=== PATIENT | male | born 1965 | race Two or more races ===

== ENCOUNTER 2020-06-06 08:00 | Outpatient (REF) | payer OTHER, SELFPAY ==
--- NOTE | 2020-06-06 | US_ITS ---
EXAMINATION: US ABDOMEN COMPLETE CLINICAL INFORMATION: Chronic hepatitis C. Liver fibrosis. COMPARISON: CT abdomen and pelvis 07/04/2019. Ultrasound abdomen complete 09/08/2018 and 09/24/2016. TECHNIQUE: Real-time imaging of the abdominal viscera. FINDINGS: PANCREAS: Normal. ABDOMINAL AORTA: The proximal, mid, and distal segments are normal in caliber. INFERIOR VENA CAVA: Visualized portions are normal. LIVER: The liver is normal in size. The liver contour is normal. There is mild increased echogenicity. No focal hepatic lesion. There is no intrahepatic biliary duct dilatation seen. GALLBLADDER: The gallbladder is physiologically distended. Multiple mobile gallstones are present. No evidence of gallbladder wall thickening or pericholecystic fluid. COMMON BILE DUCT: Normal in caliber measuring 0.3 cm in diameter. RIGHT KIDNEY: Normal. No hydronephrosis. No renal calculi or focal parenchymal lesions. The kidney measures 11.3 cm in maximum dimension. LEFT KIDNEY: Normal. No hydronephrosis. No renal calculi or focal parenchymal lesions. The kidney measures 11.7 cm in maximum dimension. SPLEEN: Normal. The spleen measures 8.1 cm in maximum dimension. FREE FLUID: None. US/US abdomen complete IMPRESSION: Cholelithiasis without wall thickening. Small mobile echogenic gallstones without wall thickening. The rest of the abdominal ultrasound is unremarkable.
[2020-06-06 09:02] LABS: MANUAL DIFF FLAG NO
[2020-06-06 09:09] LABS: Basophils Percent Auto 0.5 % (0-2); Eosinophils Absolute Auto 0.1 X10*3/uL (0.0-0.4); Hematocrit 42.3 % (42-52); Imm Gran Abs Auto 0.01 X10*3/uL (0.00-0.03); Imm Gran Pct Auto 0.2 % (0.0-0.4); Lymphocytes Absolute Auto 1.5 X10*3/uL (1.2-4.9); Lymphocytes Percent Auto 24.6 % (20-40); Mean Corpuscular HGB Conc 33.1 g/dl (31.0-36.0); Mean Corpuscular Hemoglobin 30.6 pg (27.0-33.0); Mean Corpuscular Volume 92.6 fL (80-98); Mean Platelet Volume 11.8 fL (9.4-12.4); Monocytes Absolute Auto 0.5 X10*3/uL (0.1-1.2); Monocytes Percent Auto 7.7 % (2-11); Neutrophils Absolute Auto 3.9 X10*3/uL (2.0-8.3); Platelet Count 202 X10*3/uL (160-400); Red Blood Count 4.57 X10*6/uL (4.60-5.80); Red Cell Distribution Width 12.2 % (11.0-16.0)
[2020-06-06 09:16] LABS: Prothrombin Time 11.8 SEC (10.8-13.0)
[2020-06-06 09:31] LABS: Alanine Aminotransferase 25 U/L (0-40); Albumin Level 4.5 g/dL (3.5-5.0); Alkaline Phosphatase 74 U/L (39-117); Aspartate Amino Transferase 26 U/L (5-37); Bilirubin Direct 0.3 mg/dL (0.0-0.5); Bilirubin Total 0.8 mg/dL (0.0-1.0)
[2020-06-07 11:17] LABS: Alpha Fetoprotein 2.3 ng/mL (<6.1)
== END 2020-06-06 08:01 | disposition home or self-care (01) ==
LOC: HO.US 08:00
PROVIDERS: PCP Physician Assistant; Visit Provider Internal Medicine
DX: B18.2 Chronic viral hepatitis C (principal); K74.00 Hepatic fibrosis, unspecified
CPT/HCPCS: 36415; 76700; 80076; 82105; 85025; 85610

== ENCOUNTER 2020-08-04 09:25 | Outpatient (REF) | payer OTHER, SELFPAY | END 2020-08-04 09:26 | disposition home or self-care (01) | LOC: HO.LAB 09:25 | PROVIDERS: Visit Provider Internal Medicine | DX: Z20.828 Contact with and (suspected) exposure to other viral communicable diseases (principal) | CPT/HCPCS: C9803; U0003 ==

== ENCOUNTER 2020-09-08 09:51 | Outpatient (REF) | payer OTHER, SELFPAY ==
[2020-09-08 10:15] LABS: MANUAL DIFF FLAG NO
[2020-09-08 10:24] LABS: Basophils Percent Auto 0.7 % (0-2); Eosinophils Absolute Auto 0.1 X10*3/uL (0.0-0.4); Eosinophils Percent Auto 2.6 % (0-4); Hematocrit 43.8 % (42-52); Hemoglobin 14.7 g/dl (14.0-18.0); Imm Gran Abs Auto 0.01 X10*3/uL (0.00-0.03); Imm Gran Pct Auto 0.2 % (0.0-0.4); Lymphocytes Absolute Auto 1.6 X10*3/uL (1.2-4.9); Lymphocytes Percent Auto 29.6 % (20-40); Mean Corpuscular HGB Conc 33.6 g/dl (31.0-36.0); Mean Corpuscular Hemoglobin 30.9 pg (27.0-33.0); Mean Corpuscular Volume 92.2 fL (80-98); Mean Platelet Volume 11.4 fL (9.4-12.4); Monocytes Absolute Auto 0.4 X10*3/uL (0.1-1.2); Neutrophils Absolute Auto 3.2 X10*3/uL (2.0-8.3); Neutrophils Percent Auto 58.9 % (45-73); Platelet Count 203 X10*3/uL (160-400); Red Blood Count 4.75 X10*6/uL (4.60-5.80); Red Cell Distribution Width 12.3 % (11.0-16.0); White Blood Count 5.5 X10*3/uL (4.8-10.8)
[2020-09-08 10:44] LABS: Alanine Aminotransferase 30 U/L (0-40); Albumin Level 4.5 g/dL (3.5-5.0); Alkaline Phosphatase 72 U/L (39-117); Anion Gap 16 (12-20); Aspartate Amino Transferase 30 U/L (5-37); Bilirubin Total 0.5 mg/dL (0.0-1.0); Blood Urea Nitrogen 18 mg/dL (9-16); Calcium 9.1 mg/dL (8.4-10.2); Carbon Dioxide 26 mmol/L (22-29); Chloride 102 mmol/L (96-108); Cholesterol 181 mg/dL; Estimated Glomerular Filt Rate > 60; Glucose Fasting 98 mg/dL (60-99); HDL Cholesterol 62 mg/dL; LDL Cholesterol Calculated 109 mg/dl; Potassium 4.8 mmol/L (3.3-5.1); Sodium 139 mmol/L (135-145); Total Protein 7.3 g/dL (6.5-8.0); Triglycerides 52 mg/dL
[2020-09-08 11:03] LABS: Prostate Specific Antigen 0.46 ng/mL (<0.05-4.0)
== END 2020-09-08 09:52 | disposition home or self-care (01) ==
LOC: HO.LAB 09:51
PROVIDERS: PCP Physician Assistant; Visit Provider Physician Assistant
DX: E78.00 Pure hypercholesterolemia, unspecified (principal); I10 Essential (primary) hypertension; Z12.5 Encounter for screening for malignant neoplasm of prostate
CPT/HCPCS: 36415; 80053; 80061; 84153; 85025

== ENCOUNTER 2021-03-16 08:23 | Outpatient (REF) | payer OTHER, SELFPAY ==
[2021-03-16 09:00] LABS: Hematocrit 41.1 % (42-52); Hemoglobin 13.5 g/dl (14.0-18.0); Mean Corpuscular HGB Conc 32.8 g/dl (31.0-36.0); Mean Corpuscular Hemoglobin 30.5 pg (27.0-33.0); Mean Platelet Volume 11.5 fL (9.4-12.4); Platelet Count 189 X10*3/uL (160-400); Red Blood Count 4.42 X10*6/uL (4.60-5.80); Red Cell Distribution Width 12.9 % (11.0-16.0); White Blood Count 5.6 X10*3/uL (4.8-10.8)
[2021-03-16 09:43] LABS: Alanine Aminotransferase 25 U/L (0-40); Albumin Level 4.3 g/dL (3.5-5.0); Alkaline Phosphatase 63 U/L (39-117); Anion Gap 14 (12-20); Aspartate Amino Transferase 23 U/L (5-37); Bilirubin Total 0.7 mg/dL (0.0-1.0); Blood Urea Nitrogen 21 mg/dL (9-16); Carbon Dioxide 27 mmol/L (22-29); Chloride 106 mmol/L (96-108); Cholesterol 201 mg/dL; Estimated Glomerular Filt Rate > 60; Glucose Fasting 108 mg/dL (60-99); HDL Cholesterol 62 mg/dL; LDL Cholesterol Calculated 127 mg/dl; Potassium 4.7 mmol/L (3.3-5.1); Sodium 142 mmol/L (135-145); Total Protein 6.9 g/dL (6.5-8.0); Triglycerides 62 mg/dL
[2021-03-16 09:50] LABS: TSH reflex Free T4 2.12 uIU/mL (0.32-4.0)
== END 2021-03-16 08:24 | disposition home or self-care (01) ==
LOC: HO.LAB 08:23
PROVIDERS: PCP Physician Assistant; Visit Provider Physician Assistant
DX: E78.5 Hyperlipidemia, unspecified (principal); I10 Essential (primary) hypertension
CPT/HCPCS: 36415; 80053; 80061; 84443; 85027

== ENCOUNTER 2021-09-21 07:52 | Outpatient (REF) | payer OTHER, SELFPAY ==
[2021-09-21 08:40] LABS: Hematocrit 41.5 % (42.0-52.0); Hemoglobin 13.9 g/dl (14.0-18.0); Mean Corpuscular HGB Conc 33.5 g/dl (31.0-36.0); Mean Corpuscular Volume 92.6 fL (80.0-98.0); Mean Platelet Volume 10.9 fL (9.4-12.4); Platelet Count 219 X10*3/uL (160-400); Red Blood Count 4.48 X10*6/uL (4.60-5.80); Red Cell Distribution Width 12.7 % (11.0-16.0); White Blood Count 8.6 X10*3/uL (4.8-10.8)
[2021-09-21 08:59] LABS: Alanine Aminotransferase 25 U/L (0-40); Albumin Level 4.4 g/dL (3.5-5.0); Alkaline Phosphatase 64 U/L (39-117); Anion Gap 12 (12-20); Aspartate Amino Transferase 27 U/L (5-37); Bilirubin Total 0.8 mg/dL (0.0-1.0); Blood Urea Nitrogen 21 mg/dL (9-16); Calcium 9.3 mg/dL (8.4-10.2); Carbon Dioxide 29 mmol/L (22-29); Chloride 103 mmol/L (96-108); Cholesterol 230 mg/dL; Estimated Glomerular Filt Rate > 60; Glucose Fasting 118 mg/dL (60-99); HDL Cholesterol 67 mg/dL; LDL Cholesterol Calculated 150 mg/dl; Potassium 4.4 mmol/L (3.3-5.1); Sodium 140 mmol/L (135-145); Total Protein 7.2 g/dL (6.5-8.0); Triglycerides 66 mg/dL
[2021-09-21 09:19] LABS: Prostate Specific Antigen Scr 0.45 ng/mL (<0.05-4.0); TSH reflex Free T4 2.77 uIU/mL (0.32-4.0)
[2021-09-21 10:35] LABS: Appearance Urine HAZY; Color Urine YELLOW; Glucose Urine UA NEG (NEG); Leukocyte Esterase Urine NEG (NEG); Nitrite Urine NEG (NEG); UACC Culture Trigger NO; Urine Blood TRACE (NEG); Urine Ketones NEG (NEG); Urine Protein NEG (NEG-TRACE)
[2021-09-21 11:38] LABS: Squamous Epithelial Cell Urine TRACE /LPF; WBC Urine 0 /HPF (0-4)
[2021-09-21 11:39] LABS: Amorphous Sediment Urine 2+ /LPF
== END 2021-09-21 07:53 | disposition home or self-care (01) ==
LOC: HO.LAB 07:52
PROVIDERS: PCP Physician Assistant; Visit Provider Physician Assistant
DX: I10 Essential (primary) hypertension (principal); R30.0 Dysuria; R31.29 Other microscopic hematuria; E78.2 Mixed hyperlipidemia; Z12.5 Encounter for screening for malignant neoplasm of prostate
CPT/HCPCS: 36415; 80053; 80061; 81001; 81003; 84153; 84443; 85027

== ENCOUNTER 2021-10-09 08:43 | Outpatient (REF) | payer OTHER, SELFPAY ==
--- NOTE | ~2021-10-09 | US_ITS ---
EXAMINATION: US COMPLETE ABDOMEN WITH LIVER ELASTOGRAPHY CLINICAL INFORMATION: Liver fibrosis. History of hepatitis C COMPARISON: None. TECHNIQUE: Real-time imaging of the abdominal viscera. Noninvasive ultrasound liver fibrosis assessment is performed using Massiel ElastPQ point quantification shear wave elastography (2D-SWE) with a C5-2 MHz transducer. Multiple elastography samples are obtained. FINDINGS: PANCREAS: Normal. The visualized pancreatic head and body are normal in appearance. The remainder of the pancreas is obscured from visualization by the overlying bowel gas. ABDOMINAL AORTA: The proximal, middle, and distal aortic segments are normal in caliber. There is evidence of mild atherosclerotic disease. INFERIOR VENA CAVA: Visualized portions are normal. LIVER: Normal. The liver demonstrates normal size, contour and echogenicity. No focal lesion or intrahepatic biliary duct dilatation. The right lobe measures 11 cm in length. The left lobe measures 9 cm in length. Portal flow is normal/hepatopedal Shear wave liver elastography median stiffness is 1.3 m/s (reference: normal median stiffness is 1.3 m/s or less). IQR/median stiffness to assess sampling precision is 0.12 (reference: good quality data set is IQR/median stiffness of 0.15 or less). GALLBLADDER: Normal. The gallbladder is physiologically distended without evidence of stones, sludge, polyps, wall thickening or pericholecystic fluid. COMMON BILE DUCT: Normal in caliber measuring 0.2 cm in diameter. RIGHT KIDNEY: Normal. No hydronephrosis. No renal calculi or focal parenchymal lesions. The kidney measures 11 cm in maximum dimension. LEFT KIDNEY: Normal. No hydronephrosis. No renal calculi or focal parenchymal lesions. The kidney measures 12 cm in maximum dimension. SPLEEN: Normal. The spleen measures 8 cm in maximum dimension. FREE FLUID: None. US/US abdomen comp w elastography IMPRESSION: 1. Impression: Mild atherosclerotic disease otherwise unremarkable exam. 2. Liver elastography: Adequate liver sampling. High probability of being normal. REFERENCE: Society of Radiologists in Ultrasound Liver Stiffness Thresholds (2020): LIVER STIFFNESS THRESHOLDS: *Liver Stiffness equal or less than 1.3 m/s: High probability of being normal. *Liver Stiffness less than 1.7 m/s: In the absence of other known clinical signs, rules out compensated advanced chronic liver disease. *Liver Stiffness 1.7-2.1 m/s: Suggestive of compensated advanced chronic liver disease but need further test for confirmation. *Liver Stiffness over 2.1 m/s: Rules in compensated advanced chronic liver disease. *Liver Stiffness over 2.4 m/s: Suggestive of clinically significant portal hypertension. QUALITY OF DATA SET: *IQR/Median value equal or less than 0.15 implies a quality data set. *IQR/Median value over 0.15 implies a poor quality data set. SIGNIFICANT CHANGE FROM PRIOR EXAM: Significant change if liver stiffness measurement is 10% or greater from prior exam. OTHER CONSIDERATIONS: The stage of liver fibrosis may be overestimated in the setting of acute hepatitis, liver inflammation, elevated liver function tests, hepatic vascular congestion, obstructive cholestasis, non-fasting state, and infiltrative diseases such as amyloidosis and lymphoma. In some patients with NAFLD, the liver stiffness thresholds for compensated advanced chronic liver disease may be lower. In causes other than viral hepatitis and NAFLD, liver stiffness thresholds are not well established.
[2021-10-09 10:17] LABS: INTERNATIONAL NORM RATIO 0.9 (0.9-1.1); Prothrombin Time 10.7 SEC (9.9-13.0)
[2021-10-11 12:21] LABS: Alpha Fetoprotein 2.5 ng/mL (<6.1)
== END 2021-10-09 08:44 | disposition home or self-care (01) ==
LOC: HO.US 08:43
PROVIDERS: PCP Physician Assistant; Visit Provider Internal Medicine
DX: K74.00 Hepatic fibrosis, unspecified (principal); Z86.19 Personal history of other infectious and parasitic diseases
CPT/HCPCS: 36415; 76705; 76981; 82105; 85610

== ENCOUNTER 2022-04-08 07:05 | Outpatient (REF) | payer OTHER, SELFPAY ==
[2022-04-08 07:22] LABS: MANUAL DIFF FLAG NO
[2022-04-08 07:56] LABS: Basophils Percent Auto 0.6 % (0-2); Eosinophils Absolute Auto 0.1 X10*3/uL (0.0-0.4); Eosinophils Percent Auto 2.2 % (0-4); Hemoglobin 13.3 g/dl (14.0-18.0); Imm Gran Abs Auto 0.01 X10*3/uL (0.00-0.03); Imm Gran Pct Auto 0.2 % (0.0-0.4); Lymphocytes Absolute Auto 1.4 X10*3/uL (1.2-4.9); Lymphocytes Percent Auto 21.4 % (20-40); Mean Corpuscular HGB Conc 34.1 g/dl (31.0-36.0); Mean Corpuscular Volume 90.9 fL (80.0-98.0); Mean Platelet Volume 11.2 fL (9.4-12.4); Monocytes Absolute Auto 0.4 X10*3/uL (0.1-1.2); Monocytes Percent Auto 5.8 % (2-11); Neutrophils Absolute Auto 4.4 x10*3/uL (2.0-8.3); Neutrophils Percent Auto 69.8 % (45-73); Platelet Count 209 X10*3/uL (160-400); Red Blood Count 4.29 X10*6/uL (4.60-5.80); Red Cell Distribution Width 12.7 % (11.0-16.0); White Blood Count 6.4 X10*3/uL (4.8-10.8)
[2022-04-08 08:08] LABS: Appearance Urine Clear; Color Urine Yellow; Glucose Urine UA Negative (Negative); Leukocyte Esterase Urine Negative (Negative); Nitrite Urine Negative (Negative); PH 5.5 (5.0-9.0); Urine Blood Small (1+) (Negative); Urine Ketones Negative (Negative); Urine Protein Negative (Neg-Trace)
[2022-04-08 08:20] LABS: Bacteria Urine None Seen (None Seen); Hyaline Casts Urine 0-2 /LPF (0-2); RBC Urine 0-2 /HPF (0-2); Squamous Epithelial Cell Urine 0-2 /HPF (0-2); WBC Urine 0-5 /HPF (0-5)
[2022-04-08 08:46] LABS: Alanine Aminotransferase 16 U/L (0-40); Albumin Level 4.2 g/dL (3.5-5.0); Alkaline Phosphatase 58 U/L (39-117); Anion Gap 14 (12-20); Aspartate Amino Transferase 17 U/L (5-37); Bilirubin Total 0.5 mg/dL (0.0-1.0); Blood Urea Nitrogen 16 mg/dL (9-16); Calcium 8.5 mg/dL (8.4-10.2); Carbon Dioxide 25 mmol/L (22-29); Chloride 105 mmol/L (96-108); Cholesterol 182 mg/dL; Estimated Glomerular Filt Rate > 60; Glucose Fasting 107 mg/dL (60-99); HDL Cholesterol 59 mg/dL; Iron 87 mcg/dL (45-160); LDL Cholesterol Calculated 109 mg/dl; Percent Iron Saturation 27 % (15-50); Potassium 3.8 mmol/L (3.3-5.1); Sodium 140 mmol/L (135-145); Total Iron Binding Capacity 325 mcg/dL (228-428); Total Protein 6.7 g/dL (6.5-8.0); Triglycerides 74 mg/dL; Unsaturated Iron Binding 238 ug/dL
[2022-04-08 09:29] LABS: Estimated Average Glucose 111 mg/dL; Hemoglobin A1c % 5.5 %
[2022-04-08 09:40] LABS: Microalbum/Creatinine Ratio Ur 5.1 ug/mg cr
== END 2022-04-08 07:06 | disposition home or self-care (01) ==
LOC: HO.LAB 07:05
PROVIDERS: PCP Physician Assistant; Visit Provider Physician Assistant
DX: I10 Essential (primary) hypertension (principal); D50.9 Iron deficiency anemia, unspecified; E78.5 Hyperlipidemia, unspecified; E78.2 Mixed hyperlipidemia; R73.01 Impaired fasting glucose; R30.0 Dysuria; R31.29 Other microscopic hematuria
CPT/HCPCS: 36415; 80053; 80061; 81001; 81003; 82043; 83036; 83540; 84443; 85025; 85027

== ENCOUNTER 2022-08-06 14:29 | Outpatient (REF) | payer OTHER, SELFPAY ==
--- NOTE | 2022-08-06 08:45 | EMG_ITS ---
Please see scanned EMG / Nerve Conduction Report. MTDD
== END 2022-08-06 14:30 | disposition home or self-care (01) ==
LOC: HO.NEURO 14:29
PROVIDERS: PCP Physician Assistant; Visit Provider Physician Assistant
DX: R20.2 Paresthesia of skin (principal)
CPT/HCPCS: 95885; 95910

== ENCOUNTER 2022-12-05 10:12 | Outpatient (REF) | payer OTHER, MEDICAID, SELFPAY ==
--- NOTE | ~2022-12-05 | XR_ITS ---
EXAMINATION: XR HAND, LEFT CLINICAL INFORMATION: Left hand pain. COMPARISON: None available. TECHNIQUE: PA, lateral, and oblique views of the left hand. FINDINGS: No acute fracture or dislocation of the left hand is identified. No destructive bony lesions are evident. There appears be a bone island within the head of the 5th metacarpal and base of the 4th middle phalanx. There is mild degenerative change about the 1st carpometacarpal joint. There is question old healed fracture of the scaphoid. Joint spaces appear maintained. XR/XR hand LT min 3V IMPRESSION: No significant left hand abnormality appreciated.
== END 2022-12-05 10:13 | disposition home or self-care (01) ==
LOC: HO.HOSX 10:12
PROVIDERS: Visit Provider Orthopaedic Surgery
DX: G56.02 Carpal tunnel syndrome, left upper limb (principal)
CPT/HCPCS: 73130; 99202

== ENCOUNTER 2022-12-25 09:53 | Day surgery (SDC) | payer OTHER, SELFPAY ==
[2022-12-25 10:22] VITALS: BMI 21.4
--- NOTE | 2022-12-25 12:10 | MHC.SHP ---
Pre-Procedural Eval Section A Date of Service: 12/25/22 The patient is an INPATIENT: No Changes since office visit: No Cold of Flu in the past 2 weeks, No New Medical Problems, No Changes in Medication and No Patient answered all questions The History & Physical has been completed within 30 days and I have reviewed it.: Yes Section B Chief Complaint: Carpal tunnel syndrome, left upper limb Allergies: Allergies Allergy/AdvReac Type Severity Reaction Status Date / Time No Known Allergies Allergy Verified 12/05/22 15:30 [No Known Allergies*] Plan I have reviewed the history and physical and performed a pertinent physical examination on my patient. No changes have occurred unless specified. Time Spent With Patient Time: Total time managing care of this patient today ____ minutes.
--- NOTE | 2022-12-25 12:11 | W.PM.OPN ---
Operative Note Operative Note Date of Service: 12/25/22 Narrative: Preop diagnosis: 1. Left Carpal tunnel syndrome Postop diagnosis: same Procedure: 1. Left Carpal tunnel release Surgeon: Ariela Allan MD Anesthesia: local block using 1% lidocaine with epinephrine Findings: Thickened transverse carpal ligament. EBL: Less than 5 mL Specimens: None Complications: None Disposition: Brought to recovery room in stable condition Plan: Follow-up for 10-14 days for wound check and suture removal Indications: The patient is 57 years old, with left carpal tunnel syndrome that has been unresponsive to nonoperative management. The risks and benefits of operative treatment including but not limited to risk of damage to blood vessels, nerves, tendons, infection, persistent pain, persistent symptoms, or possible need for additional surgery were discussed with the patient and the patient wishes to proceed with surgery. Procedure: Once consent was obtained a local block was performed using a combination of 1% lidocaine with epinephrine. The patient was then brought back to the operating suite and placed on the operative table in supine position. The left upper extremity was prepped and draped in a standard surgical fashion. Once assured that we had a good block, a 2.0 cm longitudinal incision was made centered over the carpal tunnel. The incision was made through the skin to the subcutaneous tissues using a #15 blade. Dissection was made down to the level of the transverse carpal ligament with care being taken to protect the palmar cutaneous nerve. Once the transverse carpal ligament was clearly visualized, a longitudinal incision was made in the transverse carpal ligament 1st using a #15 blade, then using tenotomy scissors under direct visualization. Care was taken to look for and protect the motor branch of the median nerve when seen in this area. Once satisfied with our carpal tunnel release the wound was copiously irrigated with normal saline and hemostasis was obtained with a brief period of local pressure. The skin edges were reapproximated with some 5.0 nylon suture material and a sterile dressing was applied. The patient appears to have tolerated the procedure well and with no complications. All digits were well vascularized at the conclusion of the case.
[2022-12-25 13:02] VITALS: BP 141/76; PULSE 71; RESP 18; O2SAT 98
== END 2022-12-25 14:55 | disposition home or self-care (01) ==
PROVIDERS: PCP Physician Assistant; Visit Provider Orthopaedic Surgery
PROC: (CPT 64721; principal; 2022-12-25 12:20)
DX: G56.02 Carpal tunnel syndrome, left upper limb (principal); R20.0 Anesthesia of skin; R20.2 Paresthesia of skin; Z96.611 Presence of right artificial shoulder joint; F12.90 Cannabis use, unspecified, uncomplicated
CPT/HCPCS: 64721; J0171

== ENCOUNTER 2022-12-30 07:21 | Outpatient (REF) | payer OTHER, SELFPAY ==
[2022-12-30 08:00] LABS: Hematocrit 41.7 % (42.0-52.0); Hemoglobin 13.7 g/dl (14.0-18.0); Mean Corpuscular HGB Conc 32.9 g/dl (31.0-36.0); Mean Corpuscular Hemoglobin 30.7 pg (27.0-33.0); Mean Corpuscular Volume 93.5 fL (80.0-98.0); Mean Platelet Volume 10.8 fL (9.4-12.4); Platelet Count 202 X10*3/uL (160-400); Red Blood Count 4.46 X10*6/uL (4.60-5.80); Red Cell Distribution Width 12.8 % (11.0-16.0); White Blood Count 6.1 X10*3/uL (4.8-10.8)
[2022-12-30 08:52] LABS: Alanine Aminotransferase 13 U/L (0-40); Albumin Level 4.2 g/dL (3.5-5.0); Alkaline Phosphatase 70 U/L (39-117); Anion Gap 11 (12-20); Aspartate Amino Transferase 13 U/L (5-37); Bilirubin Total 0.3 mg/dL (0.0-1.0); Blood Urea Nitrogen 14 mg/dL (9-16); Calcium 9.1 mg/dL (8.4-10.2); Carbon Dioxide 29 mmol/L (22-29); Chloride 106 mmol/L (96-108); Cholesterol 210 mg/dL; Estimated Glomerular Filt Rate > 60; Glucose Fasting 109 mg/dL (60-99); HDL Cholesterol 58 mg/dL; LDL Cholesterol Calculated 135 mg/dl; Potassium 4.2 mmol/L (3.3-5.1); Sodium 142 mmol/L (135-145); Total Protein 6.6 g/dL (6.5-8.0); Triglycerides 88 mg/dL
[2022-12-30 08:54] LABS: Prostate Specific Antigen Scr 1.13 ng/mL (<0.05-4.0)
[2022-12-30 09:38] LABS: Creatinine Urine 155.74 mg/dL; Microalbum/Creatinine Ratio Ur 4.4 ug/mg cr
== END 2022-12-30 07:22 | disposition home or self-care (01) ==
LOC: HO.LAB 07:21
PROVIDERS: PCP Physician Assistant; Visit Provider Physician Assistant
DX: Z12.5 Encounter for screening for malignant neoplasm of prostate (principal); I10 Essential (primary) hypertension; E78.2 Mixed hyperlipidemia
CPT/HCPCS: 36415; 80053; 80061; 82043; 84153; 85027

== ENCOUNTER → 2023-01-07 13:55 | Outpatient (BNVA) | payer OTHER, SELFPAY | PROVIDERS: PCP Physician Assistant; Visit Provider Orthopaedic Surgery | DX: Z48.811 Encounter for surgical aftercare following surgery on the nervous system (principal); Z86.69 Personal history of other diseases of the nervous system and sense organs | CPT/HCPCS: 99212 ==

== ENCOUNTER 2023-04-27 09:50 | Outpatient (REF) | payer OTHER, SELFPAY ==
--- NOTE | ~2023-04-27 | US_ITS ---
EXAMINATION: US COMPLETE ABDOMEN WITH LIVER ELASTOGRAPHY CLINICAL INFORMATION: Hepatic fibrosis. History of hepatitis C. COMPARISON: October 09, 2021. TECHNIQUE: Real-time imaging of the abdominal viscera. Noninvasive ultrasound liver fibrosis assessment is performed using Massiel ElastPQ point quantification shear wave elastography (2D-SWE) with a C5-2 MHz transducer. Multiple elastography samples are obtained. FINDINGS: PANCREAS: Head and body appear unremarkable. Tail not visualized. ABDOMINAL AORTA: The proximal, middle, and distal aortic segments appear unremarkable in caliber. INFERIOR VENA CAVA: Visualized portions appear normal. LIVER: The liver demonstrates normal size, contour and echogenicity. No focal lesion or intrahepatic biliary duct dilatation appreciated. The right lobe measures 12.5 cm in length. The left lobe measures 8.3 cm in length. Portal flow is towards the liver (hepatopetal). Shear wave liver elastography median stiffness is 1.38 m/s (reference: normal median stiffness is 1.3 m/s or less). IQR/median stiffness to assess sampling precision is 0.08 (reference: good quality data set is IQR/median stiffness of 0.15 or less). GALLBLADDER: No shadowing stone, gallbladder wall thickening, hyperemia, or pericholecystic fluid identified. Question gallbladder fold versus 0.2 cm polyp. Technologist reports negative sonographic Jackson's sign. COMMON BILE DUCT: Normal in caliber measuring 0.3 cm in diameter. RIGHT KIDNEY: No hydronephrosis. No renal calculi or focal parenchymal lesion appreciated. The kidney measures 10.4 cm in maximum dimension. LEFT KIDNEY: No hydronephrosis. No renal calculi or focal parenchymal lesion appreciated. The kidney measures 11.5 cm in maximum dimension. SPLEEN: The spleen measures 9.2 cm in maximum dimension. FREE FLUID: None. US/US abdomen comp w elastography IMPRESSION: Liver elastography: Minimal risk of clinically significant fibrosis. Question gallbladder fold versus 0.2 cm polyp. Otherwise unremarkable abdominal ultrasound examination. REFERENCE: Society of Radiologists in Ultrasound Liver Stiffness Thresholds (2020): LIVER STIFFNESS THRESHOLDS: *Liver Stiffness equal or less than 1.3 m/s: High probability of being normal. *Liver Stiffness less than 1.7 m/s: In the absence of other known clinical signs, rules out compensated advanced chronic liver disease. *Liver Stiffness 1.7-2.1 m/s: Suggestive of compensated advanced chronic liver disease but need further test for confirmation. *Liver Stiffness over 2.1 m/s: Rules in compensated advanced chronic liver disease. *Liver Stiffness over 2.4 m/s: Suggestive of clinically significant portal hypertension. QUALITY OF DATA SET: *IQR/Median value equal or less than 0.15 implies a quality data set. *IQR/Median value over 0.15 implies a poor quality data set. SIGNIFICANT CHANGE FROM PRIOR EXAM: Significant change if liver stiffness measurement is 10% or greater from prior exam. OTHER CONSIDERATIONS: The stage of liver fibrosis may be overestimated in the setting of acute hepatitis, liver inflammation, elevated liver function tests, hepatic vascular congestion, obstructive cholestasis, non-fasting state, and infiltrative diseases such as amyloidosis and lymphoma. In some patients with NAFLD, the liver stiffness thresholds for compensated advanced chronic liver disease may be lower. In causes other than viral hepatitis and NAFLD, liver stiffness thresholds are not well established.
[2023-04-27 11:08] LABS: INTERNATIONAL NORM RATIO 0.9 (0.9-1.1); Prothrombin Time 11.3 SEC (11.1-13.3)
[2023-04-29 12:53] LABS: Alpha Fetoprotein 2.1 ng/mL (<6.1)
[2023-04-29 14:54] LABS: HCV Log PCR <1.18 NOT DETECTED Log IU/mL (NOT DETECTED); HepC Viral Load <15 NOT DETECTED IU/mL (NOT DETECTED)
[2023-05-01 19:30] LABS: FIB-ALT 11 U/L (9-46); FIB-Alpha-2-Macroglobulin 200 mg/dL (106-279); FIB-Apolipoprotein A1 185 mg/dL (94-176); FIB-GGT 17 U/L (3-85); FIB-Haptoglobin 183 mg/dL (43-212); FIB-Total Bilirubin 0.4 mg/dL (0.2-1.2); Liver Fibrosis Score 0.11; Liver Fibrosis Stage F0; Nec Inflam Act Grade A0; Nec Inflam Act Score 0.02
== END 2023-04-27 09:51 | disposition home or self-care (01) ==
LOC: HO.US 09:50
PROVIDERS: PCP Physician Assistant; Visit Provider Internal Medicine
DX: K74.00 Hepatic fibrosis, unspecified (principal); Z86.19 Personal history of other infectious and parasitic diseases
CPT/HCPCS: 36415; 76705; 76981; 81596; 82105; 85610; 87522

== ENCOUNTER 2023-07-04 07:50 | Outpatient (REF) | payer OTHER, SELFPAY ==
--- NOTE | ~2023-07-04 | XR_ITS ---
EXAMINATION: XR CHEST 2 VIEWS CLINICAL INFORMATION: History of nicotine dependence. COMPARISON: Chest radiographs dated 10/05/2013. TECHNIQUE: Frontal and lateral views of the chest were obtained. FINDINGS: The heart, great vessels, pulmonary vasculature and mediastinum are normal. The lungs show no focal infiltrate, effusion or pneumothorax. There is no acute osseous abnormality. There is a mild thoracic dextroscoliosis. XR/XR chest 2V IMPRESSION: No active cardiopulmonary disease.
[2023-07-04 08:16] LABS: Hematocrit 42.9 % (42.0-52.0); Hemoglobin 14.2 g/dl (14.0-18.0); Mean Corpuscular HGB Conc 33.1 g/dl (31.0-36.0); Mean Corpuscular Hemoglobin 30.6 pg (27.0-33.0); Mean Corpuscular Volume 92.5 fL (80.0-98.0); Mean Platelet Volume 10.7 fL (9.4-12.4); Platelet Count 213 X10*3/uL (160-400); Red Blood Count 4.64 X10*6/uL (4.60-5.80); Red Cell Distribution Width 12.8 % (11.0-16.0); White Blood Count 6.4 X10*3/uL (4.8-10.8)
[2023-07-04 08:35] LABS: Alanine Aminotransferase 15 U/L (0-40); Albumin Level 4.2 g/dL (3.5-5.0); Alkaline Phosphatase 64 U/L (39-117); Anion Gap 12 (12-20); Aspartate Amino Transferase 21 U/L (5-37); Bilirubin Total 0.5 mg/dL (0.0-1.0); Blood Urea Nitrogen 15 mg/dL (9-16); Calcium 9.4 mg/dL (8.4-10.2); Carbon Dioxide 26 mmol/L (22-29); Chloride 106 mmol/L (96-108); Cholesterol 199 mg/dL (<200); Estimated Glomerular Filt Rate > 60; Glucose Fasting 106 mg/dL (60-99); HDL Cholesterol 61 mg/dL (>40); LDL Cholesterol Calculated 123 mg/dL (<100); Potassium 4.3 mmol/L (3.3-5.1); Sodium 140 mmol/L (135-145); Total Protein 7.2 g/dL (6.5-8.0); Triglycerides 76 mg/dL (<150)
== END 2023-07-04 07:51 | disposition home or self-care (01) ==
LOC: HO.LAB 07:50
PROVIDERS: PCP Physician Assistant; Visit Provider Physician Assistant
DX: E78.2 Mixed hyperlipidemia (principal); Z87.891 Personal history of nicotine dependence
CPT/HCPCS: 36415; 71046; 80053; 80061; 85027

== ENCOUNTER 2023-07-08 15:58 | Outpatient (AMB) | payer OTHER, SELFPAY ==
[2023-07-08 16:02] VITALS: BP 116/64; PULSE 91; O2SAT 98; BMI 21.0
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
== END 2023-07-08 16:41 | disposition home or self-care (01) ==
PROVIDERS: Visit Provider Physician Assistant
DX: Z00.00 Encounter for general adult medical examination without abnormal findings (principal); D50.9 Iron deficiency anemia, unspecified; F41.1 Generalized anxiety disorder; I10 Essential (primary) hypertension; E78.2 Mixed hyperlipidemia; R73.01 Impaired fasting glucose
CPT/HCPCS: 99396

== ENCOUNTER 2023-12-29 06:22 | Outpatient (REF) | payer OTHER, SELFPAY ==
[2023-12-29 08:01] LABS: Urine Cytology See Pathology rpt
[2023-12-29 08:06] LABS: Hematocrit 41.5 % (42.0-52.0); Hemoglobin 14.1 g/dl (14.0-18.0); Mean Corpuscular Hemoglobin 31.1 pg (27.0-33.0); Mean Corpuscular Volume 91.4 fL (80.0-98.0); Mean Platelet Volume 11.2 fL (9.4-12.4); Platelet Count 207 X10*3/uL (160-400); Red Blood Count 4.54 X10*6/uL (4.60-5.80); Red Cell Distribution Width 12.8 % (11.0-16.0); White Blood Count 5.6 X10*3/uL (4.8-10.8)
[2023-12-29 08:32] LABS: Creatinine Urine 134.99 mg/dL; Microalbum/Creatinine Ratio Ur 10.3 ug/mg cr (<30)
[2023-12-29 08:53] LABS: Alanine Aminotransferase 18 U/L (0-40); Albumin Level 4.3 g/dL (3.5-5.0); Alkaline Phosphatase 69 U/L (39-117); Anion Gap 13 (12-20); Aspartate Amino Transferase 16 U/L (5-37); Bilirubin Total 0.3 mg/dL (0.0-1.0); Blood Urea Nitrogen 17 mg/dL (9-16); Calcium 9.2 mg/dL (8.4-10.2); Carbon Dioxide 26 mmol/L (22-29); Chloride 107 mmol/L (96-108); Cholesterol 204 mg/dL (<200); Estimated Glomerular Filt Rate > 60; Glucose Fasting 102 mg/dL (60-99); HDL Cholesterol 63 mg/dL (>40); LDL Cholesterol Calculated 130 mg/dL (<100); Potassium 3.8 mmol/L (3.3-5.1); Sodium 142 mmol/L (135-145); Total Protein 6.9 g/dL (6.5-8.0); Triglycerides 59 mg/dL (<150)
[2023-12-29 08:54] LABS: TSH reflex Free T4 3.29 uIU/mL (0.32-4.0)
== END 2023-12-29 06:23 | disposition home or self-care (01) ==
LOC: HO.LAB 06:22
PROVIDERS: PCP Physician Assistant; Visit Provider Physician Assistant
DX: I10 Essential (primary) hypertension (principal); E78.2 Mixed hyperlipidemia; R31.29 Other microscopic hematuria; R63.4 Abnormal weight loss
CPT/HCPCS: 36415; 80053; 80061; 82043; 82570; 84443; 85027; 88112

== ENCOUNTER 2024-01-06 15:53 | Outpatient (AMB) | payer OTHER, SELFPAY ==
[2024-01-06 15:52] VITALS: BP 126/70; PULSE 90; O2SAT 97; BMI 20.7
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
== END 2024-01-06 16:12 | disposition home or self-care (01) ==
PROVIDERS: PCP Physician Assistant; Visit Provider Physician Assistant
DX: I10 Essential (primary) hypertension (principal); M67.911 Unspecified disorder of synovium and tendon, right shoulder; F41.1 Generalized anxiety disorder; R73.01 Impaired fasting glucose
CPT/HCPCS: 99214; G2211

== ENCOUNTER 2024-01-06 16:15 | Outpatient (REF) | payer OTHER, SELFPAY ==
--- NOTE | ~2024-01-06 | XR_ITS ---
EXAMINATION: XR SHOULDER, RIGHT CLINICAL INFORMATION: Unspecified disorder of synovium and tendon of right shoulder. COMPARISON: Chest radiograph of July 04, 2023, 10/05/2013. TECHNIQUE: Four views of the right shoulder. FINDINGS: Severe deformity of the proximal right humerus with medial bony exostoses was partially imaged on prior chest radiograph of 10/05/2013, but appears possibly more extensive although comparison is severely limited due to technical differences and only minimally inclusion of the proximal right humerus on prior images. Multiple amorphous and rounded soft tissue calcifications adjacent to the proximal humerus. Glenohumeral and acromioclavicular articulation maintained. Mild osteoarthritic changes in the glenohumeral and acromioclavicular joints. XR/XR shoulder RT min 2V IMPRESSION: Severe deformity of the proximal right humerus with medial bony exostoses was partially imaged on prior chest radiograph of 10/05/2013, but appears possibly more extensive although comparison is severely limited due to technical differences and only minimally inclusion of the proximal right humerus on prior images. Multiple amorphous and rounded soft tissue calcifications adjacent to the proximal humerus. Direct correlation with prior images is recommended and if prior images are provided, an addendum will be dictated. In the absence of prior images, CT scan or MRI should be considered for further evaluation.
== END 2024-01-06 16:16 | disposition home or self-care (01) ==
LOC: HO.XRAY 16:15
PROVIDERS: PCP Physician Assistant; Visit Provider Physician Assistant
DX: M67.911 Unspecified disorder of synovium and tendon, right shoulder (principal)
CPT/HCPCS: 73030

== ENCOUNTER 2024-01-29 11:19 | Outpatient (AMB) | payer OTHER, SELFPAY ==
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
[2024-01-29 11:55] VITALS: BMI 20.7
== END 2024-02-01 15:39 | disposition home or self-care (01) ==
PROVIDERS: PCP Physician Assistant; Visit Provider Orthopaedic Surgery
DX: M19.119 Post-traumatic osteoarthritis, unspecified shoulder (principal)
CPT/HCPCS: 99214

== ENCOUNTER → 2024-01-29 11:19 | Outpatient (BNVA) | payer OTHER, SELFPAY | PROVIDERS: PCP Physician Assistant; Visit Provider Orthopaedic Surgery | DX: M19.119 Post-traumatic osteoarthritis, unspecified shoulder (principal) | CPT/HCPCS: 99212 ==

== ENCOUNTER 2024-03-24 15:03 | Outpatient (REF) | payer OTHER, SELFPAY ==
--- NOTE | ~2024-03-24 | MR_ITS ---
EXAMINATION: MR SHOULDER WITHOUT CONTRAST, RIGHT CLINICAL INFORMATION: M19.119 - Post-traumatic osteoarthritis, unspecified shoulder. COMPARISON: None available. TECHNIQUE: MRI of the shoulder without contrast was performed on a high-field scanner. FINDINGS: ROTATOR CUFF: There is a thin interstitial partial tear of the infraspinatus tendon at the critical zone measuring approximately 1 x 1 cm in area and 2 mm in thickness with associated tendinosis, most consistent with the region of interstitial examination. No discrete surfacing rotator cuff tears are identified. There is moderate tendinosis of both the supraspinatus and infraspinatus tendons. Subscapularis tendon is intact. No muscle atrophy or fatty infiltration. BICEPS: Normal. CORACOACROMIAL ARCH: The undersurface of the acromion is hooked with no subacromial spur. Blmomnxm-jn-wcirhj acromioclavicular osteoarthritis with significant periarticular edema. Moderate subacromial subdeltoid bursitis. LABRUM/CAPSULE: Undersurface fraying of the superior and posterosuperior labrum. No discrete tears. Joint capsule is intact. GLENOHUMERAL JOINT/MARROW: Markedly abnormal morphology of the proximal humerus is most consistent with a old healed fracture. Prominent excrescent osseous fragments are present both anteriorly and posteriorly at the level of the metaphyses, corresponding to the attachments of the teres minor and posterior joint capsule posteriorly as well as the teres major anteriorly. Chronic susceptibility artifact is consistent with prior surgical fixation. Small glenohumeral joint effusion. Small marginal osteophytes. Mild non-uniform chondral thinning at the glenoid is most prounounced posterosuperiorly with minimal subchondral edema. Btph-ow-ucuswsao cartilage loss at the humeral head is associated with cartilage fissures and subchondral edema and chronic bone infarct is noted in the medial humeral head without significant articular cortical involvement. MR/MR shoulder RT wo con IMPRESSION: 1. Moderate supraspinatus and infraspinatus tendinosis with a thin interstitial partial tear of the infraspinatus tendon at the critical zone. No surfacing rotator cuff tears. 2. Tawgcvkp-lz-uhlneq acromioclavicular osteoarthritis with significant periarticular edema. 3. Axcx-hy-eadymdiv glenohumeral osteoarthritis 4. Hooked acromial undersurface. 5. Moderate subacromial subdeltoid bursitis. 6. Old healed fracture of the proximal humerus with prominent excrescent osseous fragments at the attachments of the teres minor and teres major. Electronically signed by: Jimbo Trejo MD 03/29/2024 10:57 AM EDT
--- NOTE | ~2024-03-24 | XR_ITS ---
EXAMINATION: XR ORBITS CLINICAL INFORMATION: Evaluation of foreign body, pre-MRI COMPARISON: None available. TECHNIQUE: 3 views of the orbits were obtained. FINDINGS: There is no fracture. No bone, joint or soft tissue abnormality is demonstrated. No evidence of metallic foreign bodies identified XR/XR pre mri screening IMPRESSION: Unremarkable examination. No foreign bodies are identified. Patient fits for MRI Electronically signed by: Geronimo Mcneal MD 03/24/2024 03:39 PM EDT
== END 2024-03-24 15:04 | disposition home or self-care (01) ==
LOC: HO.MRI 15:03
PROVIDERS: PCP Physician Assistant; Visit Provider Orthopaedic Surgery
DX: M19.119 Post-traumatic osteoarthritis, unspecified shoulder (principal)
CPT/HCPCS: 73221

== ENCOUNTER 2024-07-13 15:48 | Outpatient (AMB) | payer OTHER, SELFPAY ==
[2024-07-13 16:03] VITALS: BP 118/72; PULSE 90; O2SAT 97; BMI 20.9
--- NOTE | 2024-07-13 16:03 | MHC.PC.OV ---
Vital Signs 07/13/24 16:03 Height 5 ft 9 in Weight 141 lb 4 oz BMI 20.9 BP 118/72 Blood Pressure Location Lt brachial Position Sitting Pulse 90 Pulse Source Pulse Oximeter Pulse Oximetry (%) 97 Oxygen Delivery Method Room Air Intake Visit Reasons: Annual exam Intake Note: Patient is here today for a physical. Ship Ceiler Required: No Accompanied by: Self / Same As Patient Allergies No Known Allergies [No Known Allergies*] Allergy (Verified 07/13/24 16:18) Medication List - Last Reconciled 07/13/24 by Christopher Hernandez PA-C amitriptyline 50 mg PO BEDTIME 90 days buspirone 15 mg PO BID 90 days cyclobenzaprine 10 mg PO TID 7 days ibuprofen 800 mg PO TID PRN 10 days Tobacco use date assessed: 07/13/24 Dental Screening Dental Screen Date: 07/13/24 Did you have a dental visit in the last 12 months?: Yes Did you have a dental problem in the last 6 months where you did not have access to dental care?: No Was dental information given to patient?: Patient has dentist HPI Annual exam HPI Details Flaquito is a 59 y/o M here today roman annual physical ?PMhx significant for HTN, ANxiety, former smoker, borderline? cholesterol Right shoulder arthritis: Of note did have a traumatic humeral fracture years ago. Has followed up with Orthopedics recently and has gotten a cortisone injection which helped temporarily though now has pain and decreased range of motion his back. He understands there is not much that can be done for his shoulder issue will like to use an anti-inflammatory topical agent. Does use ibuprofen from time to time which does help reduce his pain. . ?.. ?BPH/ Microscopic hematuria; Has seen? a urologist has done cystoscopy without any bladder lesions. Most recent PSA is normal at 0.4 ?Otherwise he denies any weak urinary flow or urinary frequency. .. Borderline high Cholesterol: Most recent lipid panel showing improved total cholesterol and LDL. He continues to manage his cholesterol with lifestyle modifications. ?.. ?Anxiety: Reports his anxiety is? controlled with meds. Colonoscopy: 2018 colonoscopy normal Vaccines: Up-to-date with pneumonia vaccine tetanus vaccine, UTD Shingles , declines flu vaccine. [facility] Medical History (Updated 07/14/24 @ 08:35 by Christopher Hernandez PA-C) Former smoker Impaired fasting glucose Carpal tunnel syndrome of left wrist Left median nerve neuropathy Surgical History History of carpal tunnel surgery History of right shoulder replacement Family History Father Esophageal cancer Social History (Updated 07/13/24 @ 16:23 by Christopher Hernandez PA-C) Housing: Apartment Alcohol intake: current Alcohol intake frequency: holidays/special occasions only Alcohol type: beer Patient Tobacco Use Status: Former Tobacco user e-Cigarette/Vaping Use: Former Use Second Hand Smoke Exposure: Yes Substance Use Type: Marijuana service: No Current occupational status: disabled Current occupation: Shoulder accident Cognitive needs: No Hearing needs: No Vision needs: Yes (reading glasses) Questionnaire PHQ-9 Over the last 2 weeks, how often have you been bothered by any of the following problems? 1. Little interest or pleasure in doing things: several days 2. Feeling down, depressed, or hopeless: several days 3. Trouble falling or staying asleep, or sleeping too much: several days 4. Feeling tired or having little energy: several days 5. Poor appetite or overeating: several days 6. Feeling bad about yourself - or that you are a failure or have let yourself or your family down: not at all 7. Trouble concentrating on things, such as reading the newspaper or watching television: several days 8. Moving or speaking so slowly that other people could have noticed. Or the opposite - being so fidgety or restless that you have been moving around a lot more than usual: not at all 9. Thoughts that you would be better off or of hurting yourself in some way: not at all Total score: 6 Depression Screening Interpretation: Positive Depression Screening Follow-up: Existing condition Depression Screening Done: Yes 35334 - PHQ-9 Billing: Yes Source: Developed by Drs. Anoop Zamora, Anai Bowens, Michael Alba and colleagues, with an educational kassy from [employer]. Thrive Questionnaire Date Thrive assessed: 07/13/24 I am a: Patient What is your living situation today?: I have a steady place to live Within the past 12 months, did the food you bought not last and you didn't have the money to get more?: Sometimes True Within the past 12 months, did you worry whether your food would run out before you got money to buy more?: Sometimes True Do you have trouble paying for medicines?: No Do you have trouble getting transportation to medical appointments?: No Do you have trouble paying your heating and electricity bill?: No Do you have trouble taking care of your child, family member or friend?: No Do you have trouble with day-to-day activities such as bathing, preparing meals, shopping, managing finances, etc.?: No Are you currently unemployed and looking for a job?: No Are you interested in more education?: No Please select the resources that you would like help with: None Currently or been in a relationship where the following occur: I choose not to answer THRIVE Score: 2 AUDIT C Alcohol Use Questionnaire (AUDIT-C) 1. How often do you have a drink containing alcohol?: Never 3. How often do you have six or more drinks on one occasion?: Never Total Score: 0 OMID-7 AMB Questionnaire OMID-7 Date OMID - 7 assessed: 07/13/24 Feeling nervous, anxious, or on edge: 1 = Several days Not being able to stop or control worryin = Several days Worrying too much about different things: 1 = Several days Trouble relaxin = Several days Being so restless that it is hard to sit still: 0 = Not at all Becoming easily annoyed or irritable: 0 = Not at all Feeling afraid as if something awful might happen: 0 = Not at all Total OMID-7 score (0-4 normal; 5-9 mild; 10-14 moderate; 15-21 severe): 4 Source: Developed by Drs. Anoop Zamora, Anai Bowens, Michael Alba and colleagues, with an educational kassy from [employer]. OMID-7 Assessment Billing OMID-7 Assessment Tool: OMID-7 Assessment 67378 Review of Systems Const Denies body aches, Denies chills, Denies excessive sweating, Denies fatigue, Denies fever(s) and Denies headache(s) Eyes Denies blurry vision ENT Denies dysphagia, Denies vertigo, Denies dizziness, Denies headache(s), Denies hearing loss and Denies tinnitus Card Denies chest pain, Denies chest pain with activity, Denies syncope, Denies irregular heart rhythm and Denies dyspnea Resp Denies chest congestion, Denies cough, Denies hemoptysis, Denies dyspnea and Denies wheezing GI Denies abdominal pain, Denies melena, Denies hematochezia, Denies coffee ground emesis, Denies dysphagia, Denies diarrhea, Denies nausea and Denies vomiting Denies difficulty urinating, Denies dysuria, Denies urinary frequency, Denies urinary hesitancy and Denies urinary urgency Musc Denies arthralgias, Denies limited range of motion, Denies muscle cramps and Denies muscle weakness Skin/Breast Denies rash and Denies skin ulcer Neuro Denies Abnormal speech present, Denies confusion, Denies vertigo, Denies dizziness, Denies syncope, Denies headache(s), Denies memory loss and Denies seizure-like activity Psych Denies anxiety, Denies confusion, Denies depression, Denies memory loss, Denies panic attacks and Denies paranoia Endo Denies excessive sweating, Denies fatigue, Denies flushing, Denies polydipsia and Denies polyuria Aller/Immun Denies wheezing Physical exam (Primary Care) Vital Signs: Last Vital Signs Pulse 90 07/13/24 16:03 BP 118/72 07/13/24 16:03 Pulse Ox 97 07/13/24 16:03 Oxygen Delivery Method Room Air 07/13/24 16:03 BMI result Body Mass Index 20.9 Tobacco/Smoking Status: Tobacco use Status Tobacco use date assessed 07/13/24 07/13/24 16:05 Patient Tobacco Use Status Former Tobacco user 07/13/24 16:23 e-Cigarette/Vaping Use Former Use 07/13/24 16:23 PHQ-9: PHQ-9 Score PHQ-9: Total score 6 07/14/24 08:35 Depression Screening Interpretation: Positive Depression Screening Follow-up: Existing condition Thrive Assessment: Date of Thrive Assessment Date Thrive assessed 07/13/24 07/13/24 16:05 Currently or been in a relationship where the following occur: I choose not to answer Const General: cooperative, comfortable, no acute distress, alert and awake; No confusion Orientation/consciousness: oriented to person, oriented to place, patient oriented x3 and No confusion HENMT Head: Yes normocephalic Ears: external ears normal and TM's normal bilaterally Face and sinus: No sinus tenderness Mouth: Normal oral and palatal mucosa present and tongue normal Teeth and gingiva: dentition normal and gingiva normal Throat: Yes posterior oropharynx normal, Yes tonsils normal and Yes uvula midline Eyes Conjunctivae: conjunctivae normal Sclerae: sclerae normal Pupils: Equal, round and reactive pupils present EOM: EOMs intact bilaterally Direct Ophthalmoscopy: No no photophobia Neck Neck: Yes no lymphadenopathy, No tender and Yes no JVD Thyroid: Thyroid normal Carotids: no bruits Chest Chest palpation & inspection: no tenderness Resp Effort & Inspection: normal respiratory effort, no audible wheezes, not labored and no stridor Auscultation: no crackles, no rales, no rhonchi and no wheezes Cardio Jugular venous distension: no JVD Rate: regular rate, not bradycardic and not tachycardic Rhythm: regular rhythm Bruits: no carotid bruits Peripheral pulses: Peripheral pulses 2+ throughout GI Inspection: Yes normal to inspection, No abdominal wall ecchymosis and No visible herniation Palpation (GI): Soft to palpation, nontender, no guarding, not rigid and No hepatosplenomegaly present Auscultation: normoactive bowel sounds General: Yes no CVA tenderness Back/Spine/Pelvis Back: no CVA tenderness and No back tenderness Cervical Spine: cervical ROM normal Thoracic/Lumbar Spine: thoracic and lumbar spine normal to inspection, straight leg raise negative bilaterally, No thoraco-lumbar ROM limited and No lumbar spinal tenderness Skin Lesions: no lesions Rashes: no rashes Wounds: no wounds Neuro General: oriented to person, oriented to place, patient oriented x3, CN's II-XI intact bilaterally and No confusion Cranial nerves: Yes Equal, round and reactive pupils present and Yes Normal accommodation reflex present Cognition (Neuro): normal cognition Speech: No Abnormal speech present Gait exam (Neuro): Normal gait present Motor exam (neuro): 5/5 motor strength present throughout Extrem Right upper extremity: full ROM; no cyanosis Left upper extremity: full ROM; no cyanosis Right lower extremity: no edema Left lower extremity: no edema Psych Appearance: grossly normal Mental Status: mental status grossly normal Affect: normal affect Attitude: cooperative Thought process: Normal thought process present Coding Level of Care Code Est Pt Prev Care 40-64y(10204) Diagnoses Annual physical exam Z00.00 Mixed hyperlipidemia E78.2 Hyperlipidemia type: mixed hyperlipidemia Primary hypertension I10 Hypertension type: primary hypertension OMID (generalized anxiety disorder) F41.1 Additional Codes OMID-7 Assessment Billing - OMID-7 Assessment Tool: OMID-7 Assessment 86604 ([id number]) PHQ-9 - 44352 - PHQ-9 Billing: Yes ([id number]) Assessment & Plan Assessment & Plan (1) Annual physical exam: Code(s): Z00.00 - Encounter for general adult medical examination without abnormal findings Category: Medical Plan: As per HPI (2) HLD (hyperlipidemia): Code(s): E78.5 - Hyperlipidemia, unspecified Category: Medical Qualifiers: Hyperlipidemia type: mixed hyperlipidemia Qualified Code(s): E78.2 - Mixed hyperlipidemia Plan: Patient's most recent lipid panel showing excellent control of his total cholesterol and LDL. He has been able to manage his cholesterol with dietary and lifestyle modifications. Goal LDL is to remain below 130 (3) HTN (hypertension): Code(s): I10 - Essential (primary) hypertension Category: Medical Qualifiers: Hypertension type: primary hypertension Qualified Code(s): I10 - Essential (primary) hypertension Plan: Patient's blood pressure acceptable today in office. Again he has been able to manage his high blood pressure with dietary and lifestyle modifications. Goal blood pressure to remain below 140/90. (4) OMID (generalized anxiety disorder): Code(s): F41.1 - Generalized anxiety disorder Category: Medical Plan: He reports his anxiety is well controlled on current mental health medications. Orders: Orders Complete Blood Count no Diff 6 Months D50.9 - Iron deficiency anemia, unspecified Microalbumin, Random (w Creat) 6 Months I10 - Essential (primary) hypertension Hemoglobin A1c 6 Months R73.01 - Impaired fasting glucose Comprehensive [place]. Panel Fast 6 Months R73.01 - Impaired fasting glucose Lipid Panel 6 Months E78.2 - Mixed hyperlipidemia Prostate Specific Antigen Scr 6 Months I10 - Essential (primary) hypertension, Z12.5 - Encounter for screening for malignant neoplasm of prostate Medications: Refilled buspirone 15 mg PO BID 180 tabs 1RF 90 days F41.1 - Generalized anxiety disorder ibuprofen 800 mg PO TID PRN 30 tabs 0RF pain 10 days M54.5 - Low back pain
== END 2024-07-13 16:38 | disposition home or self-care (01) ==
PROVIDERS: PCP Physician Assistant; Visit Provider Physician Assistant
DX: Z00.00 Encounter for general adult medical examination without abnormal findings (principal); E78.2 Mixed hyperlipidemia; I10 Essential (primary) hypertension; F41.1 Generalized anxiety disorder

== ENCOUNTER → 2024-07-13 15:48 | Outpatient (BNVA) | payer OTHER, SELFPAY | PROVIDERS: PCP Physician Assistant; Visit Provider Physician Assistant | DX: Z00.00 Encounter for general adult medical examination without abnormal findings (principal); E78.2 Mixed hyperlipidemia; I10 Essential (primary) hypertension; F41.1 Generalized anxiety disorder | CPT/HCPCS: 96127; 99396 ==

== ENCOUNTER 2024-07-16 08:27 | Outpatient (REF) | payer OTHER, SELFPAY ==
[2024-07-16 09:00] LABS: Estimated Average Glucose 120 mg/dL; Hemoglobin A1C 139.0256 umol/L; Hemoglobin A1c % 5.8 % (<6.0); Total Hemoglobin (HGBA1C) 3528.4509 umol/L
[2024-07-16 09:20] LABS: Alanine Aminotransferase 25 U/L (0-40); Albumin Level 4.4 g/dL (3.5-5.0); Alkaline Phosphatase 65 U/L (39-117); Anion Gap 10 (12-20); Aspartate Amino Transferase 30 U/L (5-37); Bilirubin Total 0.3 mg/dL (0.0-1.0); Blood Urea Nitrogen 19 mg/dL (9-16); Calcium 8.8 mg/dL (8.4-10.2); Carbon Dioxide 28 mmol/L (22-29); Chloride 107 mmol/L (96-108); Cholesterol 201 mg/dL (<200); Estimated Glomerular Filt Rate > 60; Glucose Fasting 114 mg/dL (60-99); HDL Cholesterol 66 mg/dL (>40); LDL Cholesterol Calculated 125 mg/dL (<100); Potassium 4.1 mmol/L (3.3-5.1); Sodium 141 mmol/L (135-145); Triglycerides 52 mg/dL (<150)
[2024-07-16 09:40] LABS: Appearance Urine Clear; Color Urine Yellow; Glucose Urine UA Negative (Negative); Leukocyte Esterase Urine Negative (Negative); Nitrite Urine Negative (Negative); PH 6.5 (5.0-9.0); UMIC TRIGGER UACC YES; Urine Blood Trace (Negative); Urine Ketones Negative (Negative); Urine Protein Negative (Neg-Trace)
[2024-07-16 09:43] LABS: Bacteria Urine None Seen (None Seen); Hyaline Casts Urine 0-2 /LPF (0-2); Squamous Epithelial Cell Urine 0-2 /HPF (0-2); WBC Urine 0-5 /HPF (0-5)
== END 2024-07-16 08:28 | disposition home or self-care (01) ==
LOC: HO.LAB 08:27
PROVIDERS: PCP Physician Assistant; Visit Provider Physician Assistant
DX: R73.01 Impaired fasting glucose (principal); E78.2 Mixed hyperlipidemia; R30.0 Dysuria; R31.29 Other microscopic hematuria
CPT/HCPCS: 36415; 80053; 80061; 81001; 83036

== ENCOUNTER 2025-05-10 15:48 | Outpatient (AMB) | payer OTHER, SELFPAY ==
--- NOTE | 2025-05-10 15:59 | A.OFFPC_ITS ---
Vital Signs 05/10/25 16:00 Height 5 ft 9 in Weight 139 lb 2 oz BMI 20.5 BP 116/60 Blood Pressure Location Lt brachial Position Sitting Pulse 80 Pulse Source Pulse Oximeter Temp 97.3 F Temp Source Temporal Artery Scan Pulse Oximetry (%) 97 Oxygen Delivery Method Room Air Intake Visit Reasons: med review Intake Note: Patient is here to follow up on Med review. 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 per policy Accompanied by: Self / Same As Patient Allergies No Known Allergies (No Known Allergies*) Allergy (Verified 05/10/25 16:06) Medication List - Last Reconciled 05/10/25 by Christopher Hernandez PA-C amitriptyline 50 mg PO BEDTIME 90 days buspirone 15 mg PO BID 90 days cyclobenzaprine 10 mg PO TID 7 days ibuprofen 800 mg PO TID PRN 10 days Tobacco use date assessed: 05/10/25 Dental Screening Dental Screen Date: 05/10/25 Did you have a dental visit in the last 12 months?: No Did you have a dental problem in the last 6 months where you did not have access to dental care?: No Was dental information given to patient?: No HPI med review HPI Details Flaquito is a 60-year-old male here today for follow-up visit ?PMhx significant for HTN, ANxiety, former smoker, borderline? cholesterol, shoulder osteoarthritis . ?.. ?BPH/ Microscopic hematuria; Has seen? a urologist has done cystoscopy without any bladder lesions. Most recent PSA is normal at 0.4. He reports an ultrasound of his kidney did show kidney stone though does not bother him at all. ?Otherwise he denies any weak urinary flow or urinary frequency. .. Borderline high Cholesterol: Most recent lipid panel showing improved total cholesterol and LDL. He continues to manage his cholesterol with lifestyle modifications. ?.. ?Anxiety: Reports his anxiety is? controlled with meds. [facility] Medical History Former smoker Impaired fasting glucose Carpal tunnel syndrome of left wrist Left median nerve neuropathy Surgical History History of carpal tunnel surgery History of right shoulder replacement Family History Father Esophageal cancer Social History Housing: Apartment Alcohol intake: current Alcohol intake frequency: holidays/special occasions only Alcohol type: beer Patient Tobacco Use Status: Former Tobacco user e-Cigarette/Vaping Use: Former Use Second Hand Smoke Exposure: Yes Substance Use Type: Marijuana service: No Current occupational status: disabled Current occupation: Shoulder accident Cognitive needs: No Hearing needs: No Vision needs: Yes (reading glasses) Questionnaire PHQ-9 Over the last 2 weeks, how often have you been bothered by any of the following problems? 1. Little interest or pleasure in doing things: several days 2. Feeling down, depressed, or hopeless: not at all 3. Trouble falling or staying asleep, or sleeping too much: several days 4. Feeling tired or having little energy: several days 5. Poor appetite or overeating: several days 6. Feeling bad about yourself - or that you are a failure or have let yourself or your family down: not at all 7. Trouble concentrating on things, such as reading the newspaper or watching television: not at all 8. Moving or speaking so slowly that other people could have noticed. Or the opposite - being so fidgety or restless that you have been moving around a lot more than usual: not at all 9. Thoughts that you would be better off or of hurting yourself in some way: not at all Total score: 4 Depression Screening Interpretation: Positive Depression Screening Done: Yes Source: Developed by Drs. Anoop Zamora, Anai Bowens, Michael Alba and colleagues, with an educational kassy from [employer]. Thrive Questionnaire Date Thrive assessed: 05/10/25 I am a: Patient What is your living situation today?: I have a steady place to live Within the past 12 months, did the food you bought not last and you didn't have the money to get more?: I choose not to answer this question Within the past 12 months, did you worry whether your food would run out before you got money to buy more?: Sometimes True Do you have trouble paying for medicines?: No Do you have trouble getting transportation to medical appointments?: No Do you have trouble paying your heating and electricity bill?: No Do you have trouble taking care of your child, family member or friend?: No Do you have trouble with day-to-day activities such as bathing, preparing meals, shopping, managing finances, etc.?: No Are you currently unemployed and looking for a job?: No Are you interested in more education?: No Please select the resources that you would like help with: Housing/Chcf Currently or been in a relationship where the following occur: I choose not to answer THRIVE Score: 1 AUDIT C Alcohol Use Questionnaire (AUDIT-C) 1. How often do you have a drink containing alcohol?: Never Total Score: 0 OMID-7 AMB Questionnaire OMID-7 Date OMID - 7 assessed: 05/10/25 Feeling nervous, anxious, or on edge: 1 = Several days Not being able to stop or control worryin = Several days Worrying too much about different things: 1 = Several days Trouble relaxin = Several days Being so restless that it is hard to sit still: 1 = Several days Becoming easily annoyed or irritable: 0 = Not at all Feeling afraid as if something awful might happen: 0 = Not at all Total OMID-7 score (0-4 normal; 5-9 mild; 10-14 moderate; 15-21 severe): 5 Source: Developed by Drs. Anoop Zamora, Anai Bowens, Michael Alba and colleagues, with an educational kassy from [employer]. OMID-7 Assessment Billing OMID-7 Assessment Tool: OMID-7 Assessment 74997 Review of Systems Const Denies headache(s) Eyes Denies loss of vision ENT Denies vertigo, Denies dizziness, Denies headache(s) and Denies sore throat Card Denies chest pain, Denies leg edema and Denies lightheadedness Resp Denies cough, Denies hemoptysis and Denies wheezing GI Denies abdominal pain, Denies melena, Denies constipation, Denies diarrhea and Denies vomiting Denies dysuria, Denies urinary frequency and Denies urinary urgency Musc Denies arthralgias, Denies joint swelling, Denies numbness and Denies tingling Neuro Denies Abnormal speech present, Denies behavioral changes, Denies vertigo, Denies dizziness, Denies headache(s), Denies loss of vision, Denies memory loss, Denies numbness and Denies tingling Psych Denies anxiety, Denies behavioral changes, Denies depression, Denies memory loss and Denies panic attacks Nestor/Lymph Denies easy bleeding and Denies easy bruising Aller/Immun Denies wheezing Physical exam (Primary Care) Vital Signs: Last Vital Signs Temp 97.3 F 05/10/25 16:00 Pulse 80 05/10/25 16:00 BP 116/60 05/10/25 16:00 Pulse Ox 97 05/10/25 16:00 Oxygen Delivery Method Room Air 05/10/25 16:00 BMI result Body Mass Index 20.5 Tobacco/Smoking Status: Tobacco use Status Tobacco use date assessed 05/10/25 05/10/25 16:04 Patient Tobacco Use Status Former Tobacco user 05/10/25 16:04 e-Cigarette/Vaping Use Former Use 05/10/25 16:04 PHQ-9: PHQ-9 Score PHQ-9: Total score 4 05/10/25 16:29 Depression Screening Interpretation: Positive Thrive Assessment: Date of Thrive Assessment Date Thrive assessed 05/10/25 05/10/25 16:04 Currently or been in a relationship where the following occur: I choose not to answer Const General: healthy appearing, no acute distress, alert and awake Nutritional Appearance: well nourished Orientation/consciousness: oriented to person, oriented to place and oriented to time HENMT Ears: TM's normal bilaterally General nose exam: Normal nasal mucous membranes and turbinates present Eyes Conjunctivae: conjunctivae normal Sclerae: sclerae normal Pupils: Equal, round and reactive pupils present Neck Neck: Yes no lymphadenopathy and Yes no JVD Thyroid: Thyroid normal Carotids: no bruits Resp Effort & Inspection: normal respiratory effort and not tachypneic Auscultation: no crackles, no rales, no rhonchi and no wheezes Cardio Rate: regular rate Rhythm: regular rhythm Heart sounds: no murmurs and normal S1 and S2 GI Palpation (GI): Soft to palpation, nontender, no hepatomegaly and no splenomegaly Auscultation: normal bowel sounds Skin General skin exam: no rashes or lesions noted and dry skin Neuro General: oriented to person, oriented to place and oriented to time Cranial nerves: Yes Equal, round and reactive pupils present Speech: No Abnormal speech present Gait exam (Neuro): Normal gait present Motor exam (neuro): no tremor noted Extrem Right upper extremity: full ROM Left upper extremity: full ROM Right lower extremity: full ROM; no edema Left lower extremity: full ROM; no edema Psych Mental Status: mental status grossly normal Speech and movement: Normal speech and movement present Affect: normal affect Attitude: cooperative Thought process: Normal thought process present Office Procedures Flu Questionnaire Does the patient have a severe egg allergy?: No Does the patient have severe life threatening allergies?: No Does the patient have a fever or illness today?: No Has the patient ever had Guillain-Rosebud Syndrome?: No Has the patient ever had any past reaction to a flu shot?: No Immunizations Fluarix [id number] (PF) 45 mcg (15 mcg x 3)/0.5 mL IM syringe Performing Provider: Christopher Hernandez PA-C [facility] Administered by: DIANA Diggs on 05/10/25 16:29 Dose Route Admin Location Dispensed Lot Number Expiration Date NDC Bed Laborer 0.5 mL IM Left Deltoid 0.5 mL [id number] 01/30/26 [id number] [employer] VIS Given Date VIS Provided VIS Publication Date 05/10/25 Single Vaccine 24 Eligibility Eligibility Date Funding Source Not [facility] Eligible 05/10/25 Private Coding Level of Care Code Est Pt Level 4 (43476) Diagnoses Mixed hyperlipidemia E78.2 Hyperlipidemia type: mixed hyperlipidemia Primary hypertension I10 Hypertension type: primary hypertension OMID (generalized anxiety disorder) F41.1 Weight loss R63.4 Additional Codes OMID-7 Assessment Billing - OMID-7 Assessment Tool: OMID-7 Assessment 37502 ([id number]) Assessment & Plan Assessment & Plan (1) HLD (hyperlipidemia): Code(s): E78.5 - Hyperlipidemia, unspecified Category: Medical Qualifiers: Hyperlipidemia type: mixed hyperlipidemia Qualified Code(s): E78.2 - Mixed hyperlipidemia Plan: Patient's most recent lipid panel showing excellent control of his total cholesterol and LDL. He has been able to manage his cholesterol with dietary and lifestyle modifications. Goal LDL is to remain below 130 (2) HTN (hypertension): Code(s): I10 - Essential (primary) hypertension Category: Medical Qualifiers: Hypertension type: primary hypertension Qualified Code(s): I10 - Essential (primary) hypertension Plan: Patient's blood pressure acceptable today in office. Again he has been able to manage his high blood pressure with dietary and lifestyle modifications. Goal blood pressure to remain below 140/90. (3) OMID (generalized anxiety disorder): Code(s): F41.1 - Generalized anxiety disorder Category: Medical Plan: He reports his anxiety is well controlled on current mental health medications. (4) Weight loss: Code(s): R63.4 - Abnormal weight loss Category: Medical Plan: Patient continues to have low weight, has had trouble gaining weight. His only lost 3 lb over the last 9 months. He would like to check his thyroid. Orders: Orders Complete Blood Count no Diff 05/10/25 I10 - Essential (primary) hypertension Microalbumin, Random (w Creat) 05/10/25 I10 - Essential (primary) hypertension TSH reflex Free T4 05/10/25 R63.4 - Abnormal weight loss Lipid Panel 05/10/25 E78.2 - Mixed hyperlipidemia Comprehensive [place]. Panel Fast 05/10/25 I10 - Essential (primary) hypertension Influenza [id number] Immunization 05/10/25 Z23 - Encounter for immunization
[2025-05-10 16:00] VITALS: BP 116/60; PULSE 80; TEMP 36.3; O2SAT 97; BMI 20.5
== END 2025-05-10 16:31 | disposition home or self-care (01) ==
LOC: HO.HMCH 15:49
PROVIDERS: PCP Physician Assistant; Visit Provider Physician Assistant
DX: E78.2 Mixed hyperlipidemia (principal); I10 Essential (primary) hypertension; F41.1 Generalized anxiety disorder; R63.4 Abnormal weight loss

== ENCOUNTER → 2025-05-10 15:48 | Outpatient (BNVA) | payer OTHER, SELFPAY | PROVIDERS: PCP Physician Assistant; Visit Provider Physician Assistant | DX: I10 Essential (primary) hypertension (principal); F41.9 Anxiety disorder, unspecified; R31.29 Other microscopic hematuria; N40.0 Benign prostatic hyperplasia without lower urinary tract symptoms; E78.2 Mixed hyperlipidemia; F41.1 Generalized anxiety disorder; R63.4 Abnormal weight loss; Z23 Encounter for immunization; Z87.891 Personal history of nicotine dependence | CPT/HCPCS: 90471; 90656; 96127; 99212 ==

== ENCOUNTER 2025-05-13 07:39 | Outpatient (REF) | payer OTHER, SELFPAY ==
--- OUTSIDE RECORDS SUMMARY | 2025-05-13 07:41 | XMS_ITS | Patient Health Record ---
Author Organization [facility] Address [address] [place] [address] Care Team Providers Care Capsule Inspector Name Role Phone Christopher Hernandez Primary Care Provider UnavailAnoop [place] Unavailable [phone] Allergies No Known Allergies Reason For Referral No Information Medications Medication SIG (Take, Route, Frequency, Duration) Notes Start Date End Date Status Multivitamin also takes Tumeric supplement Active Cyclobenzaprine HCl Active Ibuprofen Active busPIRone HCl 15 MG 1 tablet Orally Twice a day Active Amitriptyline HCl 50 MG 1 tablet Orally Once a day Active Immunizations Vaccine Route Administration Date Status Comme nts Influenza Unknown 06/03/2018 Administered Influenza Unknown 05/04/2019 Administered Influenza Unknown 09/05/2021 Refused Social History Tobacco Use: Social History Observation Description Date Details (start date - stop date) Former Smoker NA - NA Tobacco Use/Smoking Question Answer Notes Patient is a former smoker When did you stop smoking? october 2017 How long has it been since you last smoked? 1-5 years Section Notes: Smoker; no alcohol; no drug use since before 2008 Smoker; no alcohol; no drug use since before 2008 No smoking since October; no alcohol; no drug use since before 2008 No smoking since October; no alcohol; no drug use since before 2008 No smoking since October; no alcohol; no drug use since before 2008 Problems Problem Type SNOMED Code ICD Code Onset Dates Problem Status W/U Status Risk Notes Problem Screening for malignant neoplasm of colon (061246759) Encounter for screening for malignant neoplasm of colon (Z12.11) Active confirmed Problem Screening for malignant neoplasm of rectum (726811269) Encounter for screening for malignant neoplasm of rectum (Z12.12) Active confirmed Problem Chronic hepatitis C (054847428) Chronic hepatitis C without hepatic coma (B18.2) Active confirmed Problem Gallstones (147776551) Gallstones (K80.20) Active confirmed Problem History of hepatitis C (44602880781346 ) History of hepatitis C (Z86.19) Active confirmed Problem Hepatic fibrosis (disorder) (30331117) Liver fibrosis (K74.0) Active confirmed Problem Hepatic fibrosis (disorder) (04935335) Liver fibrosis (K74.00) Active confirmed Plan Of Treatment Pending Test Test Name Order Date LIVER PROFILE 05/30/2020 CBC w DIFF 05/30/2020 PROTHROMBIN TIME (PT, INR) 05/30/2020 PROTHROMBIN TIME (PT, INR) 09/05/2021 ALPHA-FETOPROTEIN,TUMOR MARKER 6 ALPHA-FETOPROTEIN,TUMOR MARKER 0 ALPHA-FETOPROTEIN,TUMOR MARKER 3 ALPHA-FETOPROTEIN,TUMOR MARKER 9 HEPATITIS C VIRAL LOAD 04/01/2023 US ABD 05/30/2020 HCV LIVER FIBROSIS, FIBRO TEST 3 Prothrombin Time INR 04/01/2023 Alpha Fetoprotein 09/05/2021 US abdomen comp w elastography 2 US abdomen comp w elastography 3 US abdomen comp w elastography 3 Future Test Test Name Order Date COLONOSCOPY 07/16/2016 Insurance Providers Payer Name Payer Address Payer Phone Subscriber Number Group Number Insured Name Patient Relationship to Insured Coverage Start Date Coverage End Date [facility] [address] [place] [address] [id number] RIG[employer] EUBANKS Self - patient is the insured Medical (General) History Medical History History ICD Code Chronic hepatitis C-genotype 1A- liver biopsy in 2002 revealed a grade 2/4 hepatitis and tage II/IV fibrosis-- s/p 48 weeks of IF and Ribavirin [id number]--HCV viral load still negative as of 01/2017. Denies [place],DM,CVA,Lung disease,renal dise ase Anxiety HTN Neg. screening colonoscopy in 10/2016--ju [address] diverticulosis and hemorrhoids Gallstones seen on 2019 U/S-D/W patient at 09/05/2021 OV Surgical History Surgery Date(Month/Year) Shoulder surgery-right Carpal tunnel left
[2025-05-13 08:13] LABS: Hematocrit 43.0 % (42.0-52.0); Hemoglobin 14.0 g/dl (14.0-18.0); Mean Corpuscular HGB Conc 32.6 g/dl (31.0-36.0); Mean Corpuscular Hemoglobin 30.4 pg (27.0-33.0); Mean Corpuscular Volume 93.5 fL (80.0-98.0); NRBC Abs Auto 0.000 X10*3/uL (0.0-0.012); NRBC Pct Auto 0.0 /100WBC (0.0-0.2); Platelet Count 205 X10*3/uL (160-400); Red Blood Count 4.60 X10*6/uL (4.60-5.80); White Blood Count 5.6 X10*3/uL (4.8-10.8)
[2025-05-13 09:07] LABS: Alanine Aminotransferase 21 U/L (0-40); Albumin Level 4.5 g/dL (3.5-5.0); Alkaline Phosphatase 78 U/L (39-117); Anion Gap 11 (12-20); Aspartate Amino Transferase 20 U/L (5-37); Blood Urea Nitrogen 20 mg/dL (9-16); Calcium 8.8 mg/dL (8.4-10.2); Carbon Dioxide 28 mmol/L (22-29); Chloride 105 mmol/L (96-108); Cholesterol 198 mg/dL (<200); Estimated Glomerular Filt Rate > 60; HDL Cholesterol 63 mg/dL (>40); Potassium 4.1 mmol/L (3.3-5.1); Sodium 140 mmol/L (135-145); Total Protein 7.0 g/dL (6.5-8.0); Triglycerides 64 mg/dL (<150)
[2025-05-13 09:45] LABS: Microalbum/Creatinine Ratio Ur 6.7 ug/mg cr (<30)
== END 2025-05-13 07:40 | disposition home or self-care (01) ==
LOC: HO.LAB 07:39
PROVIDERS: PCP Physician Assistant; Visit Provider Physician Assistant
DX: I10 Essential (primary) hypertension (principal); E78.2 Mixed hyperlipidemia; R63.4 Abnormal weight loss
CPT/HCPCS: 36415; 80053; 80061; 82043; 82570; 84443; 85027

== ENCOUNTER 2025-05-20 07:36 | Outpatient (REF) | payer OTHER, SELFPAY ==
--- OUTSIDE RECORDS SUMMARY | 2025-05-20 07:40 | XMS_ITS | Patient Health Record ---
Author Organization [facility] Address [address] [place] [address] Care Team Providers Care Stone Planer Name Role Phone Christopher Hernandez Primary Care Provider UnavailAnoop [place] Unavailable [phone] Allergies No Known Allergies Reason For Referral [...] Problem Screening for malignant neoplasm of colon (766976803) Encounter for screening for malignant neoplasm of colon (Z12.11) Active confirmed Problem Screening for malignant neoplasm of rectum (546976961) Encounter for screening for malignant neoplasm of rectum (Z12.12) Active confirmed Problem Chronic hepatitis C (855837593) Chronic hepatitis C without hepatic coma (B18.2) Active confirmed Problem Gallstones (780070471) Gallstones (K80.20) Active confirmed Problem History of hepatitis C (85137999785128 ) History of hepatitis C (Z86.19) Active confirmed Problem Hepatic fibrosis (disorder) (45708951) Liver fibrosis (K74.0) Active confirmed Problem Hepatic fibrosis (disorder) (66145028) Liver fibrosis (K74.00) Active confirmed Plan Of [...] Insured Coverage Start Date Coverage End Date [facility] [address] [place] [address] [id number] RIGO EUBANKS Self - patient is the insured Medical (General) History Medical History History ICD Code Chronic hepatitis C-genotype 1A- liver biopsy in 2002 revealed a grade 2/4 hepatitis and tage II/IV fibrosis-- s/p 48 weeks of IF and Ribavirin [id number]--HCV viral load still negative as of 01/2017. Denies [place],DM,CVA,Lung disease,renal dise ase Anxiety HTN Neg. screening colonoscopy in 10/2016--ju st diverticulosis and hemorrhoids Gallstones seen on 2019 U/S-D/W patient at 09/05/2021 OV Surgical History Surgery Date(Month/Year) Shoulder surgery-right Carpal tunnel left
[2025-05-20 09:27] LABS: Hematocrit 43.6 % (42.0-52.0); Hemoglobin 14.1 g/dl (14.0-18.0); Mean Corpuscular HGB Conc 32.3 g/dl (31.0-36.0); Mean Corpuscular Hemoglobin 29.8 pg (27.0-33.0); Mean Corpuscular Volume 92.2 fL (80.0-98.0); NRBC Abs Auto 0.000 X10*3/uL (0.0-0.012); NRBC Pct Auto 0.0 /100WBC (0.0-0.2); Platelet Count 231 X10*3/uL (160-400); Red Blood Count 4.73 X10*6/uL (4.60-5.80); White Blood Count 6.0 X10*3/uL (4.8-10.8)
[2025-05-20 09:34] LABS: Total Hemoglobin (HGBA1C) 3684.6746 umol/L
[2025-05-20 10:46] LABS: Alanine Aminotransferase 19 U/L (0-40); Albumin Level 4.6 g/dL (3.5-5.0); Alkaline Phosphatase 75 U/L (39-117); Anion Gap 14 (12-20); Aspartate Amino Transferase 21 U/L (5-37); Blood Urea Nitrogen 20 mg/dL (9-16); Calcium 9.1 mg/dL (8.4-10.2); Carbon Dioxide 25 mmol/L (22-29); Chloride 105 mmol/L (96-108); Cholesterol 207 mg/dL (<200); Estimated Glomerular Filt Rate > 60; HDL Cholesterol 62 mg/dL (>40); Potassium 4.2 mmol/L (3.3-5.1); Sodium 140 mmol/L (135-145); Total Protein 7.2 g/dL (6.5-8.0); Triglycerides 43 mg/dL (<150)
[2025-05-20 10:49] LABS: Microalbum/Creatinine Ratio Ur 8.4 ug/mg cr (<30)
== END 2025-05-20 07:37 | disposition home or self-care (01) ==
LOC: HO.LAB 07:36
PROVIDERS: PCP Physician Assistant; Visit Provider Physician Assistant
DX: Z12.5 Encounter for screening for malignant neoplasm of prostate (principal); I10 Essential (primary) hypertension; E78.2 Mixed hyperlipidemia; R73.01 Impaired fasting glucose; D50.9 Iron deficiency anemia, unspecified
CPT/HCPCS: 36415; 80053; 80061; 82043; 82570; 83036; 84153; 85027